=== PATIENT | female | born 1945 | race Caucasian/White ===

== ENCOUNTER 2018-10-10 17:10 | Observation (INO) | payer OTHER ==
[~2018-10-10] VITALS: Ht 165.1 cm; Wt 77.9 kg
[~2018-10-10 17:10] MED LIST: ATORVASTATIN CA40 MG PO; CLARITIN10 MG PO; DUONEB 2.5-0.5 M3 ML INH; GLUCOPHAGE XR500 MG PO; LEXAPRO20 MG PO; LIPITOR 20 MG T20 M1 PO; METFORMIN HCL500 MG PO; MIDODRINE HCL 55 M1 PO; NORCO 5-325 TA1 EACH PO; TRAZODONE HCL100 MG PO; VALIUM2 MG PO
[2018-10-10] MEDS ORDERED: COLACE100 MG PO (17:17)
[2018-10-10 17:35] LABS: ABSOLUTE BASOPHILS 0.1 thou/uL (0.0-0.2); ABSOLUTE EOSINOPHILS 0.5 thou/uL (0.0-0.7); ABSOLUTE LYMPHOCYTES 3.7 thou/uL (0.8-5.3); ABSOLUTE MONOCYTES 0.6 thou/uL (0.0-1.2); ABSOLUTE NEUTROPHILS 4.9 thou/uL (1.6-8.1); BASOPHILS 0.7 %; HEMATOCRIT 38.7 % (37.0-47.0); HEMOGLOBIN 12.8 gm/dL (12.0-15.0); LYMPHOCYTES 37.7 %; MCH 29.5 pg (26.0-34.0); MCV 89.4 fL (80.0-100.0); MONOCYTES 6.4 %; MPV 9.2 fl. (7.2-11.1); NUCLEATED RBCS 0 /100WBC; PLATELET COUNT* 192 thou/uL (150-400); POLYS 50.2 %; RBC 4.33 mil/uL (4.20-5.00); RDW-CV 13.8 % (10.5-14.5); WBC 9.7 thou/uL (4.0-11.0)
[2018-10-10 17:45] LABS: APTT 31.7 Seconds (25.0-31.3); PROTIME 10.7 Seconds (9.20-11.50)
[2018-10-10 17:56] LABS: ANION GAP 5 mmol/L (7-16); BUN 12 mg/dL (7-18); CHLORIDE 103 mmol/L (98-107); CO2 33 mmol/L (21-32); CREATININE 0.8 mg/dL (0.6-1.3); GLUCOSE 119 mg/dL (70-99); POTASSIUM 3.9 mmol/L (3.5-5.1); SODIUM 141 mmol/L (136-145); TROPONIN-I LEVEL <0.06 ng/mL (<0.06)
[2018-10-10 17:57] LABS: ALBUMIN 3.9 g/dL (3.4-5.0); ALKALINE PHOSPHATASE 83 U/L (46-116); CK-MB MASS 1.5 ng/mL (<0.5-3.6); LIPASE 893 U/L (73-393); MAGNESIUM 1.8 mg/dL (1.8-2.4); NT-PRO BRAIN NAT PEPTIDE 125 pg/mL (<300); SGOT 40 U/L (15-37); SGPT 47 U/L (30-65); TOTAL BILIRUBIN 0.3 mg/dL (<0.1-1.0); TOTAL PROTEIN 7.5 g/dL (6.4-8.2)
[2018-10-10 20:37] VITALS: BP 128/60
[2018-10-10] MEDS ORDERED: AMARYL4 MG PO (21:41)
[2018-10-10 22:00] VITALS: BP 131/53
[2018-10-10] MEDS ORDERED: COLESTIPOL HCL1 G1 PO (22:18)
[2018-10-11] VITALS: BP 107/46
[2018-10-11 01:36] LABS: HEMATOCRIT 35.8 % (37.0-47.0); MCH 29.8 pg (26.0-34.0); MCHC 33.5 g/dL (28.0-37.0); MCV 88.9 fL (80.0-100.0); MPV 9.3 fl. (7.2-11.1); RBC 4.03 mil/uL (4.20-5.00); RDW-CV 13.8 % (10.5-14.5); WBC 8.2 thou/uL (4.0-11.0)
[2018-10-11 01:52] LABS: ALBUMIN 3.4 g/dL (3.4-5.0); CALCIUM 8.5 mg/dL (8.5-10.1); CREATININE 0.9 mg/dL (0.6-1.3); MAGNESIUM 1.9 mg/dL (1.8-2.4); POTASSIUM 4.1 mmol/L (3.5-5.1); TOTAL BILIRUBIN 0.3 mg/dL (<0.1-1.0); TOTAL PROTEIN 6.1 g/dL (6.4-8.2)
[2018-10-11 04:00] VITALS: BP 113/57
[2018-10-11 08:00] VITALS: BP 116/65
[2018-10-11] MEDS ORDERED: ASPIR 8181 MG PO (09:21)
[2018-10-11] MEDS ORDERED: PEPCID20 MG PO (09:21)
[2018-10-11 10:38] LABS: CHOLESTEROL 110 mg/dL (<200); HDL CHOLESTEROL 58 mg/dL (>40); LDL CHOLESTEROL 38 mg/dL (<100); TC:HDL 1.9 Ratio (Not establshd); TRIGLYCERIDE 71 mg/dL (<150); VLDL 14 mg/dL (<40)
[2018-10-11 10:49] LABS: SERUM ASSESSMENT Clear
[2018-10-11 11:50] VITALS: BP 97/42
--- NOTE | 2018-10-11 13:18 | EKG ---
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[facility] [place] 1945 Requested By: Nino Flores Order Number: [id number] MD: Charles Arevalo Measurements Intervals [place] Rate: 66 P: 42 UT: 163 QRS: -52 QRSD: 122 T: 91 QT: 467 QTc: 490 Interpretive Statements Sinus rhythm LVH with IVCD, LAD and secondary repol abnrm Borderline prolonged QT interval Compared to ECG 07/21/2017 22:17:29 Intraventricular conduction delay now present Early repolarization now present Sinus bradycardia no longer present Left anterior fascicular block no longer present T-wave abnormality no longer present Electronically Signed On 10-11-2018 13:18:23 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
--- NOTE | 2018-10-11 16:41 | CARDNUC ---
[place] [address] CARDIAC NUCLEAR IMAGING REPORT Name: GAIL SOTO Room: [address]#: [id number] Admission: 10/10/18 Attend Phys: Jae Hobbs, Discharge: Date of : 45 Date of Service: 10/11/18 1641 Report #: [id number] THIS REPORT FOR: //name// APPROVED REPORT Imaging Protocol: Rest Tc-99m/Stress Tc-99m 1 day Study performed: 10/11/2018 09:10:00 Indication: Chest pain, Syncope Patient Location: In-Patient Room #: 222 Stress Tech: Flaquita Schroeder Stress Nurse: Eleni Ritter RN Ht: 5 ft 5 in Wt: 171 lbs BSA: 1.85 m2 BMI: 28.45 Medical History Medical History: chf, cva, hyperlipidemia, hypotension, diabetes Medications: atorvastatin Allergies: nkda Cardiac Risk Factors: age, hyperlipidemia, Exercise History: Indeterminate Resting Data Rest SPECT myocardial perfusion imaging was performed in supine position 30 minutes following the intravenous injection of 10.8 mCi of Tc-99m Sestamibi. Time of rest injection: 14:00 The images were gated to evaluate regional wall motion and calculate left ventricular ejection fraction. Administration Route: IV Administration Site: Right AC Pharmacologic Stress Pharmacologic stress test was performed by injecting Regadenoson 0.4 mg IV push over 10-15 seconds immediately followed by the intravenous injection of 32.1 mCi of Tc-99m Sestamibi. Time of stress injection: 15:35 Administration Route: IV Administration Site: Right AC Heart Rate at time of stress injection: 79 bpm. Gated Stress SPECT was performed 40 [place] [address] CARDIAC NUCLEAR IMAGING REPORT Name: LAMIN SOTOE Marquita Room: [address]#: [id number] Admission: 10/10/18 Attend Phys: Jae Hobbs, Discharge: Date of : 45 Date of Service: 10/11/18 1641 Report #: [id number] The images were gated to evaluate regional wall motion and calculate left ventricular ejection fraction. Stress Test Details Stress Test: Pharmacologic stress testing performed using 0.4 mg of regadenoson per 5 mL given IV over 10 seconds. Reason for pharmacologic stress test: physical limitation. HR Max Heart Rate (APMHR): 147 bpm Resting HR: 66 bpm Target HR (85% APMHR): 124 bpm Max HR Achieved: 79 bpm % of APMHR: 53 Recovery HR: 71 bpm HR response to stress: Normal HR response to stress BP Resting BP: 100/64 mmHg Max BP: 125/59 mmHg Recovery BP: 109/64 mmHg BP response to stress: Normal blood pressure response to stress. ECG Resting ECG: nsr lad, poor r wave progression Stress ECG: nsr, lad, poor r wave progression ST Change: none Arrhythmia: none Recovery ECG: nsr Recovery ST Change: none Recovery Arrhythmia: none Clinical Reason for Termination: Completed protocol Exercise duration: 0 min sec Exercise capacity: 1 METs Nurse Comments pt too weak and have fx humerous. cannot walk on treadmill Stress ECG Conclusion normal Study Quality Study: Good Artifact: Mild Breast artifact Lung Uptake: [place] [address] CARDIAC NUCLEAR IMAGING REPORT Name: GAIL SOTO Room: [address]#: [id number] Admission: 10/10/18 Attend Phys: Jae Hobbs, Discharge: Date of : 45 Date of Service: 10/11/18 1641 Report #: [id number] Study Data At rest, the left ventricular ejection fraction was 77%.. Post stress, the left ventricular ejection was 81%.. SSS: 2 SRS: 0 SDS: 2 TID = 1.36. Perfusion Review of rest data reveals normal perfusion, without perfusion defects.Imaging obtained following vasodilator stress demonstrate a similar, uniform uptake of tracer without defects. LVEDV is normal.No segental wall motion abnormality seen. Images were reviewed using [employer]. Wall Motion normal all segments Nuclear Conclusion ECG Findings: negative for ischemia Clinical Findings: negative for ischemia Nuclear Findings: negative for ischemia Exercise Capacity: not assessed Left Ventricular Function: normal Risk Study: low Negative perfusion nuclear stress test for ischemia or infarct. <Conclusion> normal <ELECTRONICALLY SIGNED> By: Charles Arevalo MD, FACC 10/11/181640 40 40 Charles Arevalo MD, FACC /INF
[2018-10-11 17:18] VITALS: BP 97/42
== END 2018-10-11 18:38 | disposition home health service (06) ==
LOC: M.ERS 17:10 → M.2W 18:23 → M.TBA-ER 18:23 → M.2W 18:23
PROVIDERS: Family Medicine; ADMIT Internal Medicine
DX: R07.89 Other chest pain (principal); E11.9 Type 2 diabetes mellitus without complications; F32.9 Major depressive disorder, single episode, unspecified; R91.1 Solitary pulmonary nodule; E04.1 Nontoxic single thyroid nodule; R93.89 Abnormal findings on diagnostic imaging of other specified body structures; K76.89 Other specified diseases of liver; Z87.891 Personal history of nicotine dependence; Z86.73 Personal history of transient ischemic attack (TIA), and cerebral infarction without residual deficits

== ENCOUNTER → 2019-04-18 | Outpatient (CLI) | payer OTHER ==
[~2019-04-18] MED LIST changes: +AMARYL4 MG PO; +ASPIR 8181 MG PO; +COLACE100 MG PO; +COLESTIPOL HCL1 G1 PO; +PEPCID20 MG PO
== END ==
LOC: M.CT 10:33
DX: I70.0 Atherosclerosis of aorta (principal); R91.8 Other nonspecific abnormal finding of lung field